=== PATIENT | male | born 1965 | race Caucasian/White ===

== ENCOUNTER 2019-09-03 04:59 | Emergency (ER) | payer OTHER ==
[~2019-09-03] VITALS: Ht 167.6 cm; Wt 75.0 kg
[2019-09-03 05:03] VITALS: BP 13/85
[2019-09-03] MEDS ORDERED: KETOROLAC 60MG/2ML VIAL IM ONE (06:30)
== END 2019-09-03 09:16 | disposition home or self-care (01) ==
LOC: ER 04:59
DX: M54.2 Cervicalgia (principal); V43.52XA Car driver injured in collision with other type car in traffic accident, initial encounter; Y93.89 Activity, other specified; Y92.89 Other specified places as the place of occurrence of the external cause; Y99.8 Other external cause status
CPT/HCPCS: 70450; 72040; 96372; 99284; J1885